=== PATIENT | female | born 1985 | race Two or more races ===

== ENCOUNTER 2017-01-29 03:23 | Emergency (ER) | payer OTHER ==
[~2017-01-29] VITALS: Ht 152.4 cm; Wt 50.8 kg
[2017-01-29 03:28] VITALS: BP 115/79
--- NOTE | 2017-01-29 03:52 | NUR ---
marco antonio rain at bedside to jarrod stevenson.
== END 2017-01-29 04:17 | disposition home or self-care (01) ==
LOC: ER 03:28
DX: N63 Unspecified lump in breast (principal); F41.9 Anxiety disorder, unspecified
CPT/HCPCS: A4606; Z7502; Z7610